=== PATIENT | female | born 1965 | race African-American/Black ===

== ENCOUNTER 2020-08-09 19:09 | Emergency (ER) | payer OTHER ==
[2020-08-09 19:29] VITALS: BP 137/83; PULSE 72; TEMP 98.6; BMI 34.2
[2020-08-09] MEDS ORDERED: KETOROLAC TROMETHAMINE 60 MG/2 ML VIAL IM ONE (20:00)
[2020-08-09] MEDS ORDERED: CYCLOBENZAPRINE HCL 10 MG TABLET (FP) PO ONE (20:00)
[2020-08-09] MEDS ORDERED: CYCLOBENZAPRINE HCL 10 MG TABLET (FP) ONE (20:22)
[2020-08-09] MEDS ORDERED: KETOROLAC TROMETHAMINE 60 MG/2 ML VIAL ONE (20:22)
== END 2020-08-09 20:29 | disposition home or self-care (01) ==
LOC: JERFT 19:09
PROC: 3E0233Z Introduction of Anti-inflammatory into Muscle, Percutaneous Approach (ICD-10-PCS; principal; 2020-08-09)
DX: M54.5 Low back pain (principal); M25.561 Pain in right knee; M25.562 Pain in left knee; Z04.1 Encounter for examination and observation following transport accident
CPT/HCPCS: 99284-25